=== PATIENT | female | born 1950 | race Two or more races ===

== ENCOUNTER 2023-08-30 12:32 | Outpatient (AMB) | payer MEDICARE, SELFPAY ==
--- NOTE | 2023-08-30 12:56 | A.SPINEOV_ITS ---
Intake Intake Visit Reasons: spinal stenosis Intake Note: Ms. Jean Baptiset is here today c/o hip pain that radiates down left leg. MRI/[facility]. Autographer Required: Yes Assessment & Plan Assessment & Plan (1) Lumbar radiculopathy: Code(s): M54.16 - Radiculopathy, lumbar region Plan Dear [place] Thank you for referring Mrs Markel Meyer to our office today. She is a very nice 73-year-old female presents to the office today for evaluation of pain across the low back going down into her left buttock, into her left lateral thigh, into her left lateral calf. There is some pain down the posterior aspect of her calf as well. The pain does not go into her foot. It started about a year ago and has only gotten worse. When she stands to walk she will experience a significant amount of pain down her leg into her calf which makes her sit down. At this point she can only go 15 or 20 steps before she has to sit down. She can experience pain is night as well. There is no pain down the right leg. She will take Tylenol as needed but it does not seem to do much. She can not take ibuprofen because of overlap of aspirin allergy she had an anaphylactic reaction at 1 point. The patient has not had any physical therapy or any injections at this point. PMH: She is diabetic, her A1c is running about 7 range over the last few years, history of hypertension, parathyroidectomy, cholecystectomy, eye surgery for cataract repair. History of asthma. Denies any cardiac problems, bleeding disorders, kidney disorders, infectious disorders etc.. Social hx: The patient does smoke cigarettes, denies any marijuana or alcohol abuse Medications: Ambien, Lipitor, Klonopin, insulin, diclofenac gel, Colace, flutic asone, lisinopril, Tylenol, NovoLog, omeprazole, venlafaxine and vitamin-D Allergies: Aspirin gives her an anaphylactic reaction Physical exam: Patient is awake alert oriented no acute distress, she is slow to stand and walks with an antalgic gait but her reflexes are diminished at the patella but motor examination is normal Imaging review: Lumbar MRI done at [facility] in July of 2023 shows multilevel [id number] degenerative disc disease. 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 There is evidence of moderate central canal stenosis at L4- 5, as well as lateral recess stenosis at L5-S1. I do not see any significant foraminal stenosis. There is mention of a large T2 hyperintense cystic structure in the right lower quadrant of the abdomen of unknown etiology. Impression: 73-year-old female presents to the office today for evaluation of back pain, and what sounds like a left leg radiculopathy going down into her outer calf. It is aggravated with standing and goes away when she sits down. She can experience discomfort at night though. She is taken Tylenol without any relief. To this point she has not done any physical therapy or injections. I think the symptoms are coming from either the L4-5 lateral recess, or even worse she appears to have more significant stenosis at the L5-S1 lateral recess. I will review her imaging with Dr. Norris, but I did briefly discuss the option of a lumbar simple hemilaminotomy decompression procedure. The patient is going on vacation to [place] for the whole month of October. She would like to discuss this again after she gets back from vacation. At that point, I will have had a chance review everything with Dr. Norris and come up with a final plan. I will also send her for standing flexion-extension x-rays to rule out any occult instability. Also she needs to follow-up with an abdominal CT which was ordered at [facility] to evaluate the finding in the right anterior psoas muscle region seen on the MRI. Thank you for allowing us to care for your patient. The total time spent with this visit with this patient was 45 minutes reviewing history, physical exam, lumbar imaging review, and implementation of treatment plan or further diagnostic testing Nacho Norris MD,PhD [facility] Orders: Orders XR lumbar spine 4V min Today M54.16 - Radiculopathy, lumbar region Coding Level of Care Code New Pt Level 4 (45023) Diagnoses Lumbar radiculopathy M54.16
== END 2023-08-30 13:34 | disposition home or self-care (01) ==
PROVIDERS: PCP Internal Medicine; Referring Provider Physician Assistant; Visit Provider Physician Assistant
DX: M54.16 Radiculopathy, lumbar region (principal)
CPT/HCPCS: 99204

== ENCOUNTER 2023-08-30 12:32 | Outpatient (REF) | payer MEDICARE, SELFPAY ==
--- NOTE | ~2023-08-30 | XR_ITS ---
EXAMINATION: XR LUMBOSACRAL SPINE WITH OBLIQUES CLINICAL INFORMATION: Lumbar radiculopathy. COMPARISON: None available. TECHNIQUE: AP and lateral (neutral, flexion and extension) views of the lumbosacral spine are submitted. FINDINGS: There is mild bony demineralization. There is a moderate thoracolumbar levoscoliosis. At L3-L4, there is a 3 mm anterolisthesis. At L4-L5, there is a 5 mm anterolisthesis. There is mild disc space narrowing at L5-S1. No acute fracture or spondylolisthesis is seen. There is multi-level lumbar spondylosis and facet arthropathy. There are aortoiliac atherosclerotic calcifications. XR/XR lumbar spine 4V min IMPRESSION: 1. There is mild degenerative disc disease at L3-L4, L4-L5 and L5-S1. 2. There is multi-level lumbar spondylosis and facet arthropathy. 3. There is a moderate thoracolumbar levoscoliosis.
== END 2023-08-30 12:33 | disposition home or self-care (01) ==
LOC: HO.HOSX 12:32
PROVIDERS: PCP Internal Medicine; Visit Provider Physician Assistant
DX: M54.16 Radiculopathy, lumbar region (principal)
CPT/HCPCS: 72110; 99202